=== PATIENT | female | born 1995 | race Caucasian/White ===

== ENCOUNTER → 2019-02-07 20:45 | Observation (INO) ==
[2019-02-07 14:06] LABS: Bilirubin,Urine Moderate (Negative); Blood,Urine Moderate (Negative); Clarity,Urine Cloudy (Clear); Color,Urine Orange (Yellow); Glucose,Urine (UA) Normal (Normal); Ketones,Urine >=160 mg/dL (Negative); Leukocyte Esterase,Urine Small (Negative); Nitrite,Urine Positive (Negative); Protein,Urine 30 mg/dL (Neg-Trace); Specific Gravity,Urine 1.026 (1.010-1.025)
[2019-02-07 14:09] LABS: Bacteria,Urine None Seen per hpf (None-Few); Hyaline Casts,Urine None Seen per lpf (None-Few); Squamous Epithelial Cell,Urine Many per lpf (None-Few)
[2019-02-07 14:20] LABS: Calcium Oxalate Crystals,Urine Present
[2019-02-07 14:33] LABS: Amphetamine Screen,Urine Positive ng/mL (Cutoff=1000); Barbiturate Screen,Urine Negative ng/mL (Cutoff=200); Benzodiazepines Screen,Urine Negative ng/mL (Cutoff=200); Cannabinoid Screen,Urine Positive ng/mL (Cutoff = 50); Cocaine Screen,Urine Negative ng/mL (Cutoff= 300); Opiate Screen,Urine Negative ng/mL (Cutoff=300); Phencyclidine Screen,Urine Negative ng/mL (Cutoff=25)
--- NOTE | 2019-02-07 14:36 | OB/GYN History & Physical ---
Date of Encounter: 02/07/19 Time of Encounter: 12:00 Assessment and Plan (1) 32 weeks gestation of Current visit: No Status: Acute 23yo at 32+0wks GA who presents with concern for PTL, bleeding, lower abdominal pain 1. R/o PTL - hx of PTL at 32+2wks GA, weekly 17OHP - patient of PTL [facility], most recently CL 2.5cm - recent intercourse (<24hr), +UDIP, +DEHYDRATION - UCx sent for speciation and sensitivites, will give 1gm Rocephin at this time - IVF bolus with 125mL/HR continuous ordered - discussed pelvic rest until delivery - SVE: /-3, recheck 1hr: unchanged - BMZ (02/07-02/08), given procardia IR 10mg q2-3 hrs - contacted [facility] through transfer center, will transfer if patient changes her cervix, if unchanged, will keep patient overnight and administer steroids tomorrow AM - regardless, patient to continue aggressive PO hydration, and will continue ABx to completion - will make f/u appt if still on Friday 02/09 2. MWB - denies n/v/d - S = D - vertex presentation - SALVADOR subjectively normal 3. FWB - VTX - S = D - RNST for GA Dispo: Patient with concern for PTL. First injection (BMZ) given today. Denies n/v/d. Bleeding initially, cervical examination with +pink/discharge consistent with bleeding. MD THALIA (2) labor in third trimester Current visit: No Status: Acute Qualifiers: labor delivery status: without delivery Qualified Code(s): O60.03 - labor without delivery, third trimester History of Present Illness Chief complaint: concern for PTL HPI: Ms. Bryant is a 23 year old female at 32+0wks GA who presents with lower abdominal cramping and bleeding. Patient reports hx of PTL/PTD at 32+2wks GA, requiring forceps delivery due to poor maternal effort. The patient has been receiving care with PTL clinic at [facility], having weekly progesterone injection(s) and serial CL. Her most recent CL was 2.5cm per patient rapport. Her is also complicated by a hx of HSV for which she was required to start Valcyclovir at 32wks (patient has the RX filled and will begin taking it today). Regarding symptom onset, she reports increased cramping and bleeding initiating following the time of intercourse. She states she and her partner stopped having intercourse when she appreciated increased bleeding. Since this time, she has felt discomfort and was concerned she as abrupting again, as her prior baby was diagnosed with a placental abruption. The patient reports to have not been checked yet this and is therefore unsure if she is dilated. She denies leaking of fluid consistent with SROM. Denies fevers, chills, n/v/d. Reports an active fetus. PNC: UTD with [facility] Patient of PTL clinic: Weekly 17OHP Hx of HSV: Valcyclovir started at 32wks GA, no recent outbreaks (2 years), negative vaginal examination Past Med Surg Social Fam HX - Past Medical History Medical history: no medical history Psychiatric history: anxiety, depression, panic disorder, PTSD, schizophrenia - Past Surgical History Surgical History: non-contributory Additional surgical history: right ankle x2. left elbow x2 - Social History Smoking Status: Never smoker Smokeless Tobacco Status: No Alcohol use: occasionally Drug use: marijuana - Family History Mother Hx Family Endocrine Disorder: Yes (DIABETES) Obstetrical History - Pregnancies : 3 Para: 1 : 1 Ab's: 1 Livin - History/Complications History/Complications: G1 - 32+2wks GA, PTD likely 2/2 placental abruption G2 - SAB G3 - current (17OHP weekly), Hx of HSV (Valcyclovir) Medications and Allergies Vit #108/Iron/FA [ One Tablet] 1 tab PO DAILY 06/13/16 [History] clonazePAM [Klonopin] 0.5 mg PO BID PRN 06/13/16 [History] Lurasidone HCl [Latuda] 60 mg PO DAILY 02/07/19 [History] Allergy/AdvReac Type Severity Reaction Status Date / Time hydromorphone [From Dilaudid] AdvReac Hives Verified 02/19/18 19:37 tramadol [From Ultram] AdvReac Nausea Verified 02/19/18 19:37 Exam - Constitutional Constitutional: well developed, well nourished, no acute distress, average body habitus - HEENT HEENT: Normocephaly - Lungs Respiratory exam: CTAB - Abdomen Abdomen: Present: bowel sounds normal - Vagina Vagina: Present: normal moisture - Cervix Dilation: 3 Effacement: 60 Station: -3 - Uterus Uterus exam: Present: normal size, normal contour - Anus/Rectum Anus/Rectum: Present: normal perianal skin Results Result Diagrams: 02/07/19 14:30 Abnormal lab results [place] (Yellow) A 02/07/19 13:59 Cloudy (Clear) A 02/07/19 13:59 Ur Specific [place] 1.026 (1.010-1.025) H 02/07/19 13:59 30 mg/dL (Neg-Trace) H 02/07/19 13:59 >=160 mg/dL (Negative) H 02/07/19 13:59 Moderate (Negative) H 02/07/19 13:59 Positive (Negative) A 02/07/19 13:59 Moderate (Negative) H 02/07/19 13:59 2.0 mg/dL (Normal) H 02/07/19 13:59 Ur Leukocyte Esterase Small (Negative) H 02/07/19 13:59 3-5 per hpf (0-3) H 02/07/19 13:59 5-15 per hpf (0-3) H 02/07/19 13:59 Ur Squamous Epith Cells Many per lpf (None-Few) H 02/07/19 13:59 All other labs normal. - VTE Reasons for not Prescribing Prophylaxis: Treatment not Indicated - Low risk for VTE
[2019-02-07 15:28] LABS: Basophils # 0.1 K/mcL (0.0-0.2); Basophils % 0.7 %; Eosinophils # 0.8 K/mcL (0.0-0.6); Hematocrit 38.9 % (35.3-44.9); Hemoglobin 13.4 g/dL (11.5-15.4); Immature Granulocytes % 2.5 % (0-4); Lymphocytes # 2.3 K/mcL (0.6-4.6); Lymphocytes % 15.3 %; Mean Corpuscular HGB Conc 34.4 g/dL (31.6-35.5); Mean Corpuscular Hemoglobin 30.9 pg (28.0-33.3); Mean Corpuscular Volume 89.8 fL (83.0-100.0); Mean Platelet Volume 9.4 fL (9.4-12.4); Monocytes # 0.8 K/mcL (0.0-1.3); Monocytes % 5.6 %; Neutrophils # 10.6 K/mcL (1.6-8.9); Platelet Count 271 K/mcL (140-400); Red Blood Count 4.33 M/mcL (3.82-4.97); Red Cell Distribution Width 13.5 % (11.5-14.5); Segmented Neutrophils % 70.9 %
--- NOTE | 2019-02-07 17:22 | Event Note ---
Date of Encounter: 02/07/19 Time of Encounter: 17:15 23yo at 32+0wks GA, at bedside to discuss patient wanting to leave AMA. As of now, she is getting IVF, her cervical check(s) have been unchanged x2. She is no longer with any vaginal bleeding. SHe is more comfortable, and she is receiving IV antibiotics. Mother and two friends were present at bedside and were verbal about wanting to be transferred regardless of stability. I re-educated everyone on the fact that we have reason as to why the patient was having bleeding (recent intercourse of which the patient only had bleeding during and after), we have reason (hydration, UTI) for the contraction(S). Her cervix has remained unchanged and the baby is stable. TAUS was performed showing the infant to be head down (vertex). She has rec'd 1 dose of BMZ, with plans to repeat this dose tomorrow at the same time it was adminsitered today. WE have started Procardia 10mg IR q6hr to stop contraction(s). My medical recommendation is that the patient does not meet criteria to be transferred as she has remained stable throughout this hospitalization. Should this at all change, we have no problem transferring the patient to [facility], as this is where she gets her PTL care. Despite her desire to be transferred, I did reiterate to the family that we are a hospital equipped and able to take care of babies >/= [address] Mohan has been contacted and is aware of this patient and was OK that we continue to monitor fetus. MD THALIA
--- NOTE | 2019-02-07 19:12 | Event Note ---
Date of Encounter: 02/07/19 Time of Encounter: 19:11 SVE recheck with small amount of change noted from last exam. Now 3-4/75%/-3. Dr. Catalina landers.
[~2019-02-07 20:45] MED LIST: Betamethasone Acet/SodPhos 30 MG/5 ML VIAL IM SCH; NIFEdipine 10 MG CAPSULE PO SCH; NIFEdipine 10 MG CAPSULE PO STA; Penicillin G Potassium 2,500,000 UNIT in 0.9 % Sodium Chloride 100 ML IVPB SCH; Penicillin G Potassium 5,000,000 UNIT in 0.9 % Sodium Chloride Mini Bag 100 ML IVPB ONE; Ringers Solution, Lactated 1,000 ML IVC ONE; Ringers Solution, Lactated 1,000 ML ONE; cefTRIAXone 1,000 MG in 0.9 % Sodium Chloride Mini Bag 100 ML IVPB ONE
== END | disposition other institution (70) ==
LOC: 1NENULAB
PROVIDERS: ADMIT Registered Nurse; ATTEND Registered Nurse

== ENCOUNTER 2019-02-19 18:22 | Inpatient (IN) ==
[2019-02-19 18:19] LABS: Basophils # 0.1 K/mcL (0.0-0.2); Basophils % 0.5 %; Eosinophils # 0.6 K/mcL (0.0-0.6); Eosinophils % 3.2 %; Hematocrit 41.3 % (35.3-44.9); Hemoglobin 14.2 g/dL (11.5-15.4); Lymphocytes # 2.7 K/mcL (0.6-4.6); Lymphocytes % 14.5 %; Mean Corpuscular HGB Conc 34.4 g/dL (31.6-35.5); Mean Corpuscular Hemoglobin 30.8 pg (28.0-33.3); Mean Corpuscular Volume 89.6 fL (83.0-100.0); Monocytes # 1.1 K/mcL (0.0-1.3); Monocytes % 6.2 %; Neutrophils # 13.5 K/mcL (1.6-8.9); Nucleated Red Blood Cells 0.1 /100 WBC (0); Platelet Count 295 K/mcL (140-400); Red Blood Count 4.61 M/mcL (3.82-4.97); Red Cell Distribution Width 13.8 % (11.5-14.5); Segmented Neutrophils % 73.6 %; White Blood Count 18.3 K/mcL (4.3-11.1)
[~2019-02-19 18:22] MED LIST changes: +*HR* Nalbuphine 10 MG/ML AMPUL IVP PRN; -Betamethasone Acet/SodPhos 30 MG/5 ML VIAL IM SCH; +Famotidine 20 MG/2 ML VIAL IVP PRN; +Metoclopramide 10 MG/2 ML VIAL IVP PRN; -NIFEdipine 10 MG CAPSULE PO SCH; -NIFEdipine 10 MG CAPSULE PO STA; +Naloxone 0.4 MG/ML INJ IVP PRN; +Ondansetron 4 MG/2 ML VIAL IVP PRN; -Penicillin G Potassium 2,500,000 UNIT in 0.9 % Sodium Chloride 100 ML IVPB SCH; -Penicillin G Potassium 5,000,000 UNIT in 0.9 % Sodium Chloride Mini Bag 100 ML IVPB ONE; -Ringers Solution, Lactated 1,000 ML IVC ONE; -cefTRIAXone 1,000 MG in 0.9 % Sodium Chloride Mini Bag 100 ML IVPB ONE
[2019-02-19] MEDS ORDERED: Ringers Solution, Lactated 1,000 ML ONE (18:27)
[2019-02-19] MEDS ORDERED: Penicillin G Potassium 5,000,000 UNIT in 0.9 % Sodium Chloride Mini Bag 100 ML IVPB ONE (18:30)
[2019-02-19] MEDS ORDERED: Ringers Solution, Lactated 1,000 ML IVC SCH (18:30)
[2019-02-19 18:37] LABS: Amphetamine Screen,Urine Positive ng/mL (Cutoff=1000); Barbiturate Screen,Urine Negative ng/mL (Cutoff=200); Benzodiazepines Screen,Urine Negative ng/mL (Cutoff=200); Cannabinoid Screen,Urine Positive ng/mL (Cutoff = 50); Cocaine Screen,Urine Negative ng/mL (Cutoff= 300); Opiate Screen,Urine Negative ng/mL (Cutoff=300); Phencyclidine Screen,Urine Negative ng/mL (Cutoff=25)
[2019-02-19 18:38] LABS: Bilirubin,Urine Small (Negative); Blood,Urine Trace-intact (Negative); Clarity,Urine Clear (Clear); Color,Urine Yellow (Yellow); Glucose,Urine (UA) Normal (Normal); Ketones,Urine 80 mg/dL (Negative); Leukocyte Esterase,Urine Negative (Negative); Nitrite,Urine Negative (Negative); PH,Urine 6.5 pH Units (5.0-8.0); Protein,Urine 30 mg/dL (Neg-Trace); Specific Gravity,Urine 1.025 (1.010-1.025); Urobilinogen,Urine Normal (Normal)
[2019-02-19] MEDS ORDERED: Epidural Premix (fent/bupiv) 110 ML EP ONE (18:39)
--- NOTE | 2019-02-19 18:40 | OB/GYN History & Physical ---
Date of Encounter: 02/20/19 Time of Encounter: 18:33 Assessment and Plan (1) 33 weeks gestation of Current visit: Yes Status: Acute Admit for spontaneous labor at 33w5d Plan of care developed with Dr. Vasquez and care transferred due to gestation <34 weeks Patient receives care at [facility] due to prior delivery at 32w2d. Records release signed to obtain information. (2) labor in third trimester Current visit: Yes Status: Acute Continue to monitor, expectant management, expect delivery during this visit Qualifiers: labor delivery status: with delivery in third trimester Fetus number: single or unspecified fetus Qualified Code(s): O60.14X0 - labor third trimester with delivery third trimester, not applicable or unspecified (3) Premature dilatation of cervix during Current visit: Yes Status: Acute Pt presents with cervix dilated at 4cm, continues to dilate during visit Admit to L&D for labor (4) NST (non-stress test) reactive Current visit: Yes Status: Acute Category I tracing, no decels (5) Herpes simplex infection during Current visit: Yes Status: Chronic Patient reports last outbreak was 18 months ago. Has been on acyclovir since finding out status, although did not take during beginning of . Just restarted acyclovir two weeks prior. Qualifiers: Trimester: third trimester Qualified Code(s): O98.513 - Other viral disea ses complicating , third trimester; B00.9 - Herpesviral infection, unspecified History of Present Illness Chief complaint: contractions at 33w5d HPI: Ms. Bryant is a 23 year old female at 33w5d that presents today with contractions that began at 0900 on 02/19/19 and became more regular and consistent around 1600 so she called the squad. Her previous was complicated by an abruption with delivery shortly after at 32 weeks, which resulted in delivery of a male infant that spent 6 weeks in NICU after delivery. Patient is not endorsing any vaginal discharge, bleeding, difficulty urinating at this time. She is complaining of contractions which she states are in her back and in her lower abdomen. She denies any fevers or chills, chest pain, shortness of breath, belly pain, nausea, vomiting, diarrhea, constipation. Past medical history is notable for bipolar disorder as well as schizophrenia for which she takes slow to data and Klonopin. She states she has not missed any doses of her medication. She does note that she has been staying with her sister and has not had any access to food for the last day and a half. She is also taking vitamins which she took this morning and states that because she had no food it made her nauseated this morning. Normally she lives with her mother, mother's , and her 2-year-old son. She has a history of right ankle and left shoulder surgery. She has never been hospitalized except for her surgeries. She is allergic to dye wanted and tramadol, states that she breaks out in hives. Social history: Follows a regular diet, does not have a regular exercise plan, endorses occasional marijuana use with the last usage approximately 1 month ago. Does not use any tobacco products including cigarettes or chewing tobacco. Has been on bed rest since January. Does have a cup of coffee every now and then but not every day. Last sexually active 2 weeks ago which started labor at that time. Was diagnosed with a UTI 2 weeks ago and has been on antibiotics of which she does not know the name for the last 2 weeks. Has not missed any doses of her antibiotics. In addition to that documented in the HPI above, the additional ROS was obtai amber: Constitutional: Denies fevers or chills Eyes: Denies vision changes ENMT: Denies sore throat CV: Denies chest pain Resp: Denies SOB GI: Denies vomiting or diarrhea Reports: nausea : Denies painful urination MSK: Denies recent trauma Skin: Denies new rashes Reports: generalized pruritus Neuro: Denies new numbness or tingling or weakness Blood type O negative GBS unknown Rubella + Past Med Surg Social Fam HX - Past Medical History Attestation: Yes The following information was validated with the patient. Source: patient Medical history: no medical history Psychiatric history: anxiety, depression, panic disorder, PTSD, schizophrenia - Past Surgical History Surgical History: non-contributory, orthopedic, other (right ankle and left shoulder) Additional surgical history: Right ankle surgery. and Left elbow surgery - Social History Smoking Status: Never smoker Smokeless Tobacco Status: No Alcohol use: none Drug use: marijuana Occupational status: unemployed Current living situation: Home - Independent, With Family Activity Level: Independent ambulation Recent Out of Country Travel Within the Last 8 Weeks: No Exposure or Possible Exposure to Illness During Travel: No - Family History Mother Hx Family Endocrine Disorder: Yes (DM) Obstetrical History - Pregnancies : 2 Para: 1 Term: 0 : 1 Ab's: 0 Livin Medications and Allergies Vit #108/Iron/FA [ One Tablet] 1 tab PO DAILY 06/13/16 [History] clonazePAM [Klonopin] 0.5 mg PO BID PRN 06/13/16 [History] Lurasidone HCl [Latuda] 60 mg PO DAILY 02/07/19 [History] Allergy/AdvReac Type Severity Reaction Status Date / Time hydromorphone [From Dilaudid] AdvReac Hives Verified 02/19/18 19:37 tramadol [From Ultram] AdvReac Nausea Verified 02/19/18 19:37 Review of System OB - Constitutional Constitutional ROS IM: as per HPI Exam - Constitutional Constitutional: well developed, well nourished, mild distress - HEENT HEENT: Normocephaly, Mucus Membranes Moist - Neck Neck exam: full ROM - Abdomen Abdomen: Present: gravid, non tender - Extremities Extremities exam: full ROM - Vulva Vulva: bilateral: normal - Cervix Dilation: 5 Effacement: 90 Station: -2 - Uterus Uterus exam: Present: normal size - Anus/Rectum Anus/Rectum: Present: normal perianal skin Results Result Diagrams: 02/19/19 17:31 Abnormal lab results WBC 18.3 K/mcL (4.3-11.1) H 02/19/19 17:31 13.5 K/mcL (1.6-8.9) H 02/19/19 17:31 Nucleated RBCs/100 WBC 0.1 /100 WBC (0) H 02/19/19 17:31 All other labs normal. - VTE Reasons for not Prescribing Prophylaxis: Treatment not Indicated - Low risk for VTE
[2019-02-19] MEDS ORDERED: *HR* FentaNYL (PF) 100 MCG/2 ML VIAL ONE (18:41)
[2019-02-19] MEDS ORDERED: *HR* Ropivacaine/PF 0.2% 20 ML VIAL ONE (18:42)
[2019-02-19 18:50] LABS: RBC,Urine 0-3 per hpf (0-3); WBC,Urine 0-3 per hpf (0-3)
[2019-02-19 18:51] LABS: Bacteria,Urine None Seen per hpf (None-Few); Squamous Epithelial Cell,Urine Moderate per lpf (None-Few)
[2019-02-19] MEDS ORDERED: Naloxone 0.4 MG/ML INJ IVP PRN (19:12)
[2019-02-19] MEDS ORDERED: EPHEDrine 50 MG/ML VIAL IVP PRN (19:12)
[2019-02-19] MEDS ORDERED: *HR* FentaNYL (PF) 100 MCG/2 ML VIAL EP ONE (19:12)
[2019-02-19] MEDS ORDERED: Ondansetron 4 MG/2 ML VIAL IVP PRN (19:12)
[2019-02-19] MEDS ORDERED: *HR* Ropivacaine/PF 0.2% 20 ML VIAL EP ONE (19:12)
[2019-02-19] MEDS ORDERED: Epidural Premix (fent/bupiv) 110 ML EP SCH (19:15)
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
--- NOTE | 2019-02-19 19:22 | Anesthesia Procedures ---
Date of Encounter: 02/19/19 Time of Encounter: 18:30 Procedures: Anesthesia - Epidural/Spinal Patient ID/Chart reviewed: Yes Patient examined: Yes OB Eval: Gestational age: 33.5 OB Eval: : 2 OB Eval: Hx Para: 1 OB Eval: Dilated at (cm): 5 OB Eval: Contractions: Non-stressed pattern Consent Obtained: Yes Supplemental Oxygen: None/Room Air Site Prep: Aseptic Technique, Sterile prep and drape, Povidone-Iodine 1% Patient position: upright Local Anesthetic: Lidocaine 1% Amount of Local Anesthetic used: 3 Touhy Needle Gauge: 18 Touhy Needle Depth (cm): 5 Catheter Depth at Skin (cm): 11 Test Dose (1.5% Lido + Epi): Volume given (mls): 3 Test Dose Result: Negative Loading Dose: Fentanyl (mcg): 100 Loading Dose Administered: Thru Catheter Infusion Med: 0.125% Bupivacaine w/ 2 mcg/ml Fentanyl Infusion Rate (mls/hr): [address]: Tegaderm, Tape Interspace Used: L3-L4 Loss of Resistance (LAMAR): Yes Blood: No CSF: No Paresthesia: No Spinal Needle Gauge: 25 (Intentional dural puncture with sprotte 25G needle) Procedure: JEAN placed 1st pass in upright position. LAMAR achieved with Normal saline. Intentional dural puncture with sprotte 25G through epidural catheter. Catheter threaded without resistance to 11cm at the skin. Patient stated comfort with incremental bolus dose administration. VSS throughout. Vitals + FHT's: 1830 BP 126/70 P 120 R 20 1906 BP 113/65 P 108 R 16 FHT 140s
[2019-02-19] MEDS: Penicillin G Potassium 2,500,000 UNIT in 0.9 % Sodium Chloride 100 ML IVPB SCH (23:33)
[2019-02-20] MEDS: Penicillin G Potassium 2,500,000 UNIT in 0.9 % Sodium Chloride 100 ML IVPB SCH ×3 (03:30→11:44)
--- NOTE | 2019-02-20 08:45 | OB Labor Progress Note ---
Date of Encounter: 02/20/19 Time of Encounter: 08:43 Labor Progress Note - Subjective Subjective: The patient reports feeling somewhat uncomfortable with pelvic pressure. - Vital Signs Vital Signs: Afebrile, vital signs stable - Cervix Cervix: 9/100/+1, vertex confirmed by bedside ultrasound. Small amount of bloody show seen - Heart Tones Heart Tones: 140s baseline, CAT 1 - [place]: Contractions every 2-3 minutes, spontaneous - Interventions Interventions: 33 week 6 day IUP in spontaneous labor, now 9 cm. She has had multiple doses of penicillin for unknown GBS. She is fairly comfortable with an epidural - Plan Plan: I personally notify Dr. Richardson in pediatrics of imminent plans for delivery. Continue close observation and support with anticipation of vaginal delivery
--- NOTE | 2019-02-20 10:39 | OB Labor Progress Note ---
Date of Encounter: 02/20/19 Time of Encounter: 10:37 Labor Progress Note - Subjective Subjective: The patient was given by her mother one of her mother's Klonopin's due to the patient being anxious without staff knowing. Now the patient is somnolent in bed. The patient normally has prescribed 1/2 mg of Klonopin twice a day and her mother gave her 1 mg. - Vital Signs Vital Signs: Afebrile, vital signs stable - Cervix Cervix: Per RN, no change, 9 cm, vertex well applied, 0 - Heart Tones Heart Tones: 140s, CAT 1, previously late decelerations were noted after Klonopin but oxygen given and patient repositioned with good response - [place]: Contractions are spontaneous every 2-3 minutes - Interventions Interventions: 33 week 6 day IUP in active labor - Plan Plan: Continue close monitoring and anticipate vaginal delivery. Amniotomy if indicated by tracing
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
--- NOTE | 2019-02-20 13:36 | OB/GYN Procedure Note ---
Delivery - Delivery Date: 02/20/19 Provider: Glenys Colbert Intrapartum events: none Delivery induction: none Delivery augmentation: rupture of membranes Delivery monitor: external FHT, external uterine Anesthesia: epidural Quantitated Blood Loss: 50 - Infant (s) A Delivery Date: 02/20/19 Infant Delivery Time: 13:01 Presentation: vertex Position: GEORGE Route of delivery: Gender: Male Viability: Viable Pounds: 6 Ounces: 7 at 1 minute: 6 at 5 mins: 7 at 10 mins: 8 Shoulder Dystocia: not encountered Specimens collected: cord blood Placenta: spontaneous, uterine exploration Cord: 3 umbilical vessels - Repair Episiotomy: none Laceration Description: Periurethral (Bilateral, hemostatic, not repaired), Superficial (Perineal, hemostatic and not repaired) - Complications Delivery complications: none Delivery comments: The patient was complete and pushing with epidural anesthesia reporting rectal pressure. With maternal effort she had a spontaneous vaginal delivery in the GEORGE position over an intact perineum of a live male weighing 6 lbs. 7 oz., Apgars pending per nursery. The patient pushed for 6 minutes total prior to delivery. There was some bradycardia immediately prior to the delivery which did improve with maternal oxygen. Delivery was attended by Dr. Pettit due to age being , less than 34 weeks. was somnolent, thought to be related to recent Klonopin indigestion by the mother. The cord was clamped and cut and the was transferred to the nursery care team for further evaluation and support. Three-vessel cord was noted. Cord blood was obtained after a cord segment was cut. The placenta was delivered spontaneous and intact. Perineal and vaginal inspection revealed bilateral superficial periurethral lacerations were hemostatic and not repaired. There was an external superficial perineal laceration which was intact and not repaired. Estimated blood loss 50 mL's. Complications none. Mother remained in the LDR in stable condition. was transferred to the nursery for further monitoring and support. - Disposition Mom disposition: stable in LDR disposition: taken to nursery - Comments Comments: Apgars were not given to labor and delivery until 45 minutes postdelivery. Unable to run cord gases at this late time. was placed on CPAP in the nursery
[2019-02-20] MEDS ORDERED: Oxytocin 20 units/ LR 1000 mL 20 UNIT/1,000 ML BAG IVC SCH (15:00)
[2019-02-20] MEDS ORDERED: Benzocaine/Menthol 56 GM AEROSOL SPRAY TP PRN (15:00)
[2019-02-20] MEDS ORDERED: Rho Immune Globulin 1,500 UNIT SYRINGE IM PRN (15:00)
[2019-02-20] MEDS ORDERED: Lanolin 28 GM TUBE TP PRN (15:00)
[2019-02-20] MEDS ORDERED: Oxytocin 20 units/ LR 1000 mL 20 UNIT/1,000 ML BAG IVC ONE (15:11)
[2019-02-20] MEDS ORDERED: Acetaminophen 325 MG TABLET PO SCH (18:00)
[2019-02-20] MEDS ORDERED: Ibuprofen 600 MG TABLET PO SCH (18:00)
[2019-02-20] MEDS: Ibuprofen 600 MG TABLET PO SCH (22:21)
[2019-02-21] MEDS: Acetaminophen 325 MG TABLET PO SCH ×2 (01:04→07:55)
[2019-02-21] MEDS: Ibuprofen 600 MG TABLET PO SCH (03:46)
[2019-02-21 07:40] VITALS: BP 106/69
[2019-02-21 08:38] LABS: Basophils # 0.1 K/mcL (0.0-0.2); Basophils % 0.3 %; Eosinophils % 5.2 %; Hematocrit 37.8 % (35.3-44.9); Hemoglobin 12.9 g/dL (11.5-15.4); Immature Granulocytes % 1.7 % (0-4); Lymphocytes # 3.4 K/mcL (0.6-4.6); Lymphocytes % 18.5 %; Mean Corpuscular HGB Conc 34.1 g/dL (31.6-35.5); Mean Corpuscular Volume 90.9 fL (83.0-100.0); Mean Platelet Volume 9.6 fL (9.4-12.4); Monocytes # 1.1 K/mcL (0.0-1.3); Monocytes % 5.9 %; Neutrophils # 12.6 K/mcL (1.6-8.9); Platelet Count 213 K/mcL (140-400); Red Blood Count 4.16 M/mcL (3.82-4.97); Red Cell Distribution Width 13.9 % (11.5-14.5); Segmented Neutrophils % 68.4 %; White Blood Count 18.4 K/mcL (4.3-11.1)
[2019-02-21] MEDS ORDERED: Prenatal Vit/FA 1 EACH TABLET PO SCH (09:00)
[2019-02-21] MEDS ORDERED: Lurasidone 20 MG TABLET PO SCH (09:00)
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
== END 2019-02-21 13:52 | disposition home or self-care (01) | DRG 560 ==
LOC: 1NENULAB → 1NENUOBS 02-20 15:36
PROVIDERS: ADMIT Registered Nurse; ATTEND Registered Nurse